=== PATIENT | male | born 1985 | race African-American/Black ===

== ENCOUNTER 2017-09-10 22:10 | Observation (INO) | payer OTHER ==
[~2017-09-10] VITALS: Ht 193 cm; Wt 109.2 kg
[2017-09-10] MEDS ORDERED: ROBAXIN 75750 MG/TAB PO (22:25)
[2017-09-10] MEDS ORDERED: PERCOCET 325 MG1 TA2 PO (22:25)
[2017-09-10] MEDS ORDERED: NEURONTIN100 MG/CAP PO (22:26)
[2017-09-10 23:09] LABS: BASO % 0.3 % (0.0-2.0); EOS # 0.1 (0.0-0.7); GRAN # 6.5 (1.4-6.5); GRAN % 71.9 % (42.2-75.2); HEMATOCRIT 39.7 % (42.0-52.0); HEMOGLOBIN 12.9 g/dl (13.5-18.0); LYMPH # 1.8 (1.2-3.4); LYMPH % 19.6 % (20.0-51.0); MEAN CELL VOLUME 83 fl (80.0-100.0); MEAN CORPUSCULAR HEMOGLOBIN 27 pg (27.0-31.0); MEAN CORPUSCULAR HGB CONC 33 g/dl (33.0-37.0); MEAN PLATELET VOLUME 10.5 fl (7.4-10.4); MONO # 0.6 (0.1-0.6); PLATELET COUNT 238 K/mm3 (130-400); REDCELL DISTRIBUTION WIDTH-CV 13.5 % (11.5-14.5)
[2017-09-10 23:20] LABS: ALANINE AMINOTRANSFERASE 79 U/L (21-72); ALBUMIN 4.2 gm/dL (3.5-5.0); ALKALINE PHOSPHATASE 69 U/L (50-136); ANION GAP 11 mmol/L (7-16); AST,SGOT 66 U/L (15-37); BILIRUBIN,TOTAL 0.3 mg/dL (0.0-1.0); BLOOD UREA NITROGEN 11 mg/dL (9-20); C-REACTIVE PROTEIN 5.7 mg/dL (0.0-0.9); CALCIUM 9.7 mg/dL (8.4-10.2); CARBON DIOXIDE 27 mmol/L (22-30); CHLORIDE 99 mmol/L (98-107); CREATINE KINASE 98 U/L (55-170); CREATININE, serum 0.95 mg/dL (0.66-1.25); GLUCOSE 103 mg/dL (74-106); POTASSIUM 3.7 mmol/L (3.4-5.0); SODIUM 137 mmol/L (137-145); TOTAL PROTEIN 7.4 gm/dL (6.4-8.2)
[2017-09-10 23:33] LABS: TROPONIN-I < 0.012 ng/mL (0.000-0.034)
[2017-09-11 01:48] VITALS: BP 114/67; PULSE 48; TEMP 98.5
[2017-09-11 02:57] VITALS: BP 106/52; PULSE 48; TEMP 97.9
[2017-09-11 03:07] LABS: PH 6 (5-8); SQUAMOUS EPITHELIAL None Seen /hpf; URINE APPEARANCE Clear; URINE BACTERIA None Seen /hpf; URINE BILIRUBIN Negative (NEGATIVE); URINE BLOOD Negative (NEGATIVE); URINE COLOR Yellow; URINE GLUCOSE Negative (NEGATIVE); URINE KETONE Negative (NEGATIVE); URINE LEUKOCYTE ESTERASE Negative (NEGATIVE); URINE NITRATE Negative (NEGATIVE); URINE PROTEIN(semi-quant) Negative (NEGATIVE); URINE RBC 0-2 /hpf; URINE UROBILINOGEN Negative (NEGATIVE)
[2017-09-11 03:22] LABS: COLLECTION METHOD CLEAN CATCH
[2017-09-11 06:50] LABS: ALBUMIN 3.5 gm/dL (3.5-5.0); BILIRUBIN,TOTAL 0.3 mg/dL (0.0-1.0); CALCIUM 9.1 mg/dL (8.4-10.2); CREATININE, serum 0.94 mg/dL (0.66-1.25); TOTAL PROTEIN 6.5 gm/dL (6.4-8.2)
[2017-09-11 07:20] LABS: INR 1.3 (0.8-3.0); PROTHROMBIN TIME 15.3 SECONDS (9.7-12.8)
[2017-09-11 08:17] VITALS: BP 127/66; PULSE 56; TEMP 98.3
[2017-09-11 13:46] VITALS: BP 131/73; PULSE 80; TEMP 98.5
[2017-09-11 17:47] VITALS: BP 123/68; PULSE 63; TEMP 98.5
[2017-09-11 19:47] VITALS: BP 120/50; PULSE 69; TEMP 98.5
[2017-09-12 00:03] VITALS: BP 100/44; PULSE 66; TEMP 98.3
[2017-09-12 03:46] VITALS: BP 107/53; PULSE 69; TEMP 99.5
[2017-09-12 07:01] LABS: BASO % 0.3 % (0.0-2.0); EOS # 0.1 (0.0-0.7); EOS % 1.2 % (0-4.0); GRAN # 6.1 (1.4-6.5); GRAN % 78.3 % (42.2-75.2); HEMATOCRIT 39.4 % (42.0-52.0); HEMOGLOBIN 12.6 g/dl (13.5-18.0); LYMPH # 1.1 (1.2-3.4); LYMPH % 14.4 % (20.0-51.0); MEAN CELL VOLUME 84 fl (80.0-100.0); MEAN CORPUSCULAR HEMOGLOBIN 27 pg (27.0-31.0); MEAN CORPUSCULAR HGB CONC 32 g/dl (33.0-37.0); MEAN PLATELET VOLUME 11.4 fl (7.4-10.4); MONO # 0.4 (0.1-0.6); MONO % 5.5 % (1.7-9.3); PLATELET COUNT 250 K/mm3 (130-400); REDCELL DISTRIBUTION WIDTH-CV 13.6 % (11.5-14.5)
[2017-09-12 07:22] LABS: CALCIUM 9.5 mg/dL (8.4-10.2); CREATININE, serum 0.98 mg/dL (0.66-1.25); POTASSIUM 4.1 mmol/L (3.4-5.0)
[2017-09-12 07:44] VITALS: BP 114/66; PULSE 67; TEMP 98.3
[2017-09-12] MEDS ORDERED: ELIQUIS 5MG PO (08:06)
[2017-09-12] MEDS ORDERED: PERCOCET 325 MG1 TA2 PO (08:54)
== END 2017-09-12 11:16 | disposition home or self-care (01) ==
LOC: COL.ER 22:10 → MEDICAL 09-11 00:43
PROVIDERS: Emergency Medicine; Nurse Practitioner Family; Physician Assistant
DX: I26.99 Other pulmonary embolism without acute cor pulmonale (principal); D64.9 Anemia, unspecified; R74.0 Nonspecific elevation of levels of transaminase and lactic acid dehydrogenase [LDH]; Z80.3 Family history of malignant neoplasm of breast; Z83.3 Family history of diabetes mellitus; Z88.8 Allergy status to other drugs, medicaments and biological substances
CPT/HCPCS: A9284; G0378; J1650; J1885; J7030; Q9967